=== PATIENT | female | born 1965 | race Caucasian/White ===

== ENCOUNTER 2017-10-03 08:10 | Outpatient (CLI) | payer BC ==
--- NOTE | 2017-10-03 08:56 | ULT ---
SPLENIC ULTRASOUND: Date: !7 HISTORY: Splenomegaly. FINDINGS: Real-time images of the spleen were performed. The spleen measures 12.2 cm in length and approximatel y 5.3 cm in width. There is a somewhat more elongated appearance to the spleen. IMPRESSION: Mild splenomegaly. POS: [facility]
== END 2017-10-03 08:11 | disposition home or self-care (01) ==
LOC: ULT 08:10
PROVIDERS: ATTEND Internal Medicine Medical Oncology
DX: D45 Polycythemia vera (principal); R16.1 Splenomegaly, not elsewhere classified
CPT/HCPCS: 76705

== ENCOUNTER 2018-07-28 15:03 | Outpatient (CLI) | payer BC | END 2018-07-28 15:04 | disposition home or self-care (01) | LOC: BICMAMMO 15:03 | PROVIDERS: ATTEND Obstetrics & Gynecology | DX: Z12.31 Encounter for screening mammogram for malignant neoplasm of breast (principal); Z80.3 Family history of malignant neoplasm of breast | CPT/HCPCS: 77063; 77067 ==